=== PATIENT | male | born 1955 | race African-American/Black ===

== ENCOUNTER 2023-09-20 09:22 | Emergency (ER) | payer OTHER ==
[2023-09-20 09:44] VITALS: BP 122/63; PULSE 67; RESP 18; BMI 22.4
[2023-09-20] MEDS ORDERED: IBUPROFEN 400 MG TABLET (FP) PO ONE (10:10)
[2023-09-20] MEDS ORDERED: LIDOCAINE 4% PATCH TP ONE (10:10)
[2023-09-20] MEDS: LIDOCAINE 5% TOPICAL PATCH TP ONE (10:18)
[2023-09-20] MEDS: IBUPROFEN 400 MG TABLET (FP) PO ONE (10:19)
[2023-09-20] MEDS ORDERED: LIDOCAINE PATCH REMOVAL MC ONE (22:00)
== END 2023-09-20 11:26 | disposition home or self-care (01) ==
LOC: JER 09:22
DX: M79.602 Pain in left arm (principal); M25.512 Pain in left shoulder; M79.18 Myalgia, other site; V13.4XXA Pedal cycle driver injured in collision with car, pick-up truck or van in traffic accident, initial encounter; Y92.410 Unspecified street and highway as the place of occurrence of the external cause
CPT/HCPCS: 73030-TC-LT-FY; 73060-TC-LT-FY; 73090-TC-LT-FY; 73110-TC-LT-FY; 73130-TC-LT-FY; 99284-25